=== PATIENT | female | born 1950 | race Caucasian/White ===

== ENCOUNTER 2016-10-19 13:24 | Inpatient (IN) | payer MEDICARE ==
[~2016-10-19] VITALS: Ht 167.6 cm; Wt 55.8 kg
[~2016-10-19 13:24] MED LIST: ALPR0.254 PO; CALC1CAP8 PO; CHOL400C11 PO; DEXA4TAB PO; FENT-58 TD; FLUO15CR7 TD; HYDR-3138 PO; MAGN400T36 PO; MEGE625O3 PO; OMEP20TA2 PO; ONDA8TAB12 PO; POTA20TA91 PO; PROC10TA PO; [UNRECOGNIZED DRUG - CODE] IVPush
[2016-10-19] MEDS ORDERED: ALBUTEROL/IPRATROPIUM 2.5MG/0.5MG, 3 ML ONE (14:57)
[2016-10-19] MEDS ORDERED: OMNIPAQUE 350 MG/ML, 100ML BOTTLE ONE (16:45)
[2016-10-19] MEDS ORDERED: SODIUM CHLORIDE FLUSH 10ML SYR IVF PRN (18:30)
[2016-10-19] MEDS ORDERED: LEVOFLOXACIN/PMX 750MG/150ML 150 ML ONE (18:43)
[2016-10-19] MEDS ORDERED: LORazepam 2 MG/ML, 1ML ONE (18:43)
[2016-10-19] MEDS ORDERED: ONDANSETRON ODT 4 MG PO PRN (20:30)
[2016-10-19] MEDS ORDERED: POLYETHYLENE GLYCOL 17 GM PACKET PO PRN (20:30)
[2016-10-19] MEDS ORDERED: GUAIFENESIN/DM 200-20MG, 10ML UDC PO PRN (20:30)
[2016-10-19] MEDS ORDERED: [UNRECOGNIZED DRUG - REMARK] MC SCH (21:30)
[2016-10-19] MEDS ORDERED: PLEASE ENTER HEIGHT AND WEIGHT MC SCH ×2 (21:30)
[2016-10-19 22:35] VITALS: BP 115/84
[2016-10-19] MEDS: HYDROcodone/APAP 5/325 TABLET PO SCH ×2 (23:00→23:07)
[2016-10-19] MEDS: methylPREDNISolone SOD SUCC 40 MG/ML IVPush SCH (23:06)
[2016-10-19] MEDS: ONDANSETRON ODT 8 MG PO SCH (23:07)
[2016-10-19] MEDS: ENOXAPARIN 40 MG/0.4 ML SQ SCH (23:07)
[2016-10-19] MEDS: PROCHLORPERAZINE 10MG TABLET PO SCH (23:07)
[2016-10-19] MEDS: LORazepam 1MG TABLET PO PRN (23:16)
[2016-10-20 01:22] VITALS: BP 119/79
[2016-10-20] MEDS ORDERED: FUROSEMIDE 40 MG/4 ML IV ONE (02:00)
[2016-10-20] MEDS: methylPREDNISolone SOD SUCC 40 MG/ML IVPush SCH ×4 (04:22→23:38)
[2016-10-20 05:11] LABS: BLOOD UREA NITROGEN 15 mg/dL (7-18)
[2016-10-20] MEDS: HYDROcodone/APAP 5/325 TABLET PO SCH ×4 (05:26→20:17)
[2016-10-20 06:40] VITALS: BP 106/73
[2016-10-20] MEDS: PROCHLORPERAZINE 10MG TABLET PO SCH ×3 (09:00→20:18)
[2016-10-20] MEDS ORDERED: MAGNESIUM SULFATE PMX 2GM/50ML 50 ML IV ONE (09:00)
[2016-10-20] MEDS: FLUOCINOLONE ACETONIDE TD SCH (09:00)
[2016-10-20] MEDS: OMEPRAZOLE 20 MG CAPSULE.DR PO SCH (09:00)
[2016-10-20] MEDS: ONDANSETRON ODT 8 MG PO SCH ×2 (09:00→20:20)
[2016-10-20] MEDS: POTASSIUM CHLORIDE 20 MEQ TAB.ER.PRT PO SCH (09:00)
[2016-10-20] MEDS: SENNA/DOCUSATE TABLET PO SCH (09:03)
[2016-10-20] MEDS: MAGNESIUM OXIDE 400 MG TABLET PO SCH (09:03)
[2016-10-20] MEDS: LORazepam 1MG TABLET PO PRN ×3 (09:04→20:16)
[2016-10-20] MEDS ORDERED: PHARMACOKINETIC MONITORING MC PRN (11:30)
[2016-10-20] MEDS ORDERED: VANCOMYCIN PER PHARMACY MC PRN (11:30)
[2016-10-20] MEDS ORDERED: VANCOMYCIN PMX 1GM/200ML 200 ML IV SCH (12:00)
[2016-10-20] MEDS: GUAIFENESIN 200 MG TABLET PO SCH ×3 (12:00→20:20)
[2016-10-20] MEDS: MEROPENEM 500 MG in SODIUM CHLORIDE 0.9% 100 ML IV SCH ×2 (13:00→20:20)
[2016-10-20 13:17] VITALS: BP 110/77
[2016-10-20] MEDS ORDERED: FENTANYL 50 MCG PATCH TD SCH (14:00)
[2016-10-20] MEDS ORDERED: LIDOCAINE 1%, 20ML ONE (16:58)
[2016-10-20] MEDS ORDERED: SODIUM BICARBONATE 4.2%, 5ML ONE (16:58)
[2016-10-20 18:38] VITALS: BP 135/84
[2016-10-20] MEDS ORDERED: LEVOFLOXACIN/PMX 750MG/150ML 150 ML IV SCH (20:00)
[2016-10-20] MEDS: ENOXAPARIN 40 MG/0.4 ML SQ SCH (20:18)
[2016-10-21] MEDS: LORazepam 1MG TABLET PO PRN ×6 (00:19→22:31)
[2016-10-21] MEDS: HYDROcodone/APAP 5/325 TABLET PO PRN ×4 (00:19→22:31)
[2016-10-21 01:49] VITALS: BP 144/95
[2016-10-21] MEDS: MEROPENEM 500 MG in SODIUM CHLORIDE 0.9% 100 ML IV SCH ×3 (04:30→21:10)
[2016-10-21] MEDS: methylPREDNISolone SOD SUCC 40 MG/ML IVPush SCH ×4 (04:36→21:10)
[2016-10-21] MEDS: GUAIFENESIN 200 MG TABLET PO SCH ×4 (05:10→21:10)
[2016-10-21] MEDS: HYDROcodone/APAP 5/325 TABLET PO SCH ×4 (05:11→18:26)
[2016-10-21 06:17] LABS: BLOOD UREA NITROGEN 21 mg/dL (7-18)
[2016-10-21] MEDS: VANCOMYCIN PMX 1GM/200ML 200 ML IV SCH (07:48)
[2016-10-21] MEDS: FLUOCINOLONE ACETONIDE TD SCH (09:00)
[2016-10-21 09:11] VITALS: BP 129/84
[2016-10-21] MEDS: MAGNESIUM OXIDE 400 MG TABLET PO SCH (09:27)
[2016-10-21] MEDS: PROCHLORPERAZINE 10MG TABLET PO SCH ×3 (09:27→21:10)
[2016-10-21] MEDS: POTASSIUM CHLORIDE 20 MEQ TAB.ER.PRT PO SCH (09:27)
[2016-10-21] MEDS: SENNA/DOCUSATE TABLET PO SCH (09:28)
[2016-10-21] MEDS: OMEPRAZOLE 20 MG CAPSULE.DR PO SCH (09:28)
[2016-10-21] MEDS: ONDANSETRON ODT 8 MG PO SCH ×2 (09:28→21:11)
[2016-10-21] MEDS ORDERED: SODIUM CHLORIDE 0.9% 1,000 ML IV SCH (10:00)
[2016-10-21 10:08] LABS: BLOOD UREA NITROGEN 18 mg/dL (7-18); IS PT STATUS REG ER OR PRE ER? NO
[2016-10-21] MEDS: SODIUM CHLORIDE 0.9% 1,000 ML IV SCH ×2 (11:32→18:26)
[2016-10-21 13:47] VITALS: BP 138/84
[2016-10-21] MEDS ORDERED: ONDANSETRON 2MG/ML, 2ML IVPush PRN (16:00)
[2016-10-21 18:39] VITALS: BP 142/91
[2016-10-21] MEDS: ENOXAPARIN 40 MG/0.4 ML SQ SCH (21:10)
[2016-10-22 00:46] VITALS: BP 130/84
[2016-10-22] MEDS: VANCOMYCIN PMX 1GM/200ML 200 ML IV SCH ×2 (02:17→20:42)
[2016-10-22] MEDS: HYDROcodone/APAP 5/325 TABLET PO PRN ×6 (02:29→20:41)
[2016-10-22] MEDS: LORazepam 1MG TABLET PO PRN ×5 (02:29→20:41)
[2016-10-22 04:38] LABS: BLOOD UREA NITROGEN 22 mg/dL (7-18)
[2016-10-22] MEDS: MEROPENEM 500 MG in SODIUM CHLORIDE 0.9% 100 ML IV SCH ×3 (05:19→21:59)
[2016-10-22] MEDS: HYDROcodone/APAP 5/325 TABLET PO SCH ×3 (06:00→13:31)
[2016-10-22] MEDS: GUAIFENESIN 200 MG TABLET PO SCH ×4 (06:45→20:42)
[2016-10-22] MEDS: ALBUTEROL SULFATE 2.5 MG/3 ML NPPB PRN ×2 (07:04→10:25)
[2016-10-22] MEDS: methylPREDNISolone SOD SUCC 40 MG/ML IVPush SCH ×3 (07:49→20:42)
[2016-10-22] MEDS: ONDANSETRON ODT 8 MG PO SCH ×2 (07:50→20:41)
[2016-10-22] MEDS: PROCHLORPERAZINE 10MG TABLET PO SCH ×3 (07:50→20:41)
[2016-10-22] MEDS: POTASSIUM CHLORIDE 20 MEQ TAB.ER.PRT PO SCH (07:50)
[2016-10-22] MEDS: SENNA/DOCUSATE TABLET PO SCH (07:50)
[2016-10-22] MEDS: OMEPRAZOLE 20 MG CAPSULE.DR PO SCH (07:50)
[2016-10-22] MEDS: FLUOCINOLONE ACETONIDE TD SCH (07:50)
[2016-10-22] MEDS: MAGNESIUM OXIDE 400 MG TABLET PO SCH (07:50)
[2016-10-22 08:05] VITALS: BP 132/84
[2016-10-22] MEDS ORDERED: FENTANYL 50 MCG PATCH TD SCH (09:00)
[2016-10-22 13:20] VITALS: BP 129/95
[2016-10-22] MEDS: ALBUTEROL SULFATE 2.5 MG/3 ML NPPB SCH ×2 (14:08→19:01)
[2016-10-22] MEDS ORDERED: ALBUTEROL SULFATE 2.5 MG/3 ML NPPB SCH (15:00)
[2016-10-22 18:51] VITALS: BP 114/80
[2016-10-22] MEDS: ENOXAPARIN 40 MG/0.4 ML SQ SCH (20:42)
[2016-10-23 02:29] VITALS: BP 123/80
[2016-10-23] MEDS: LORazepam 1MG TABLET PO PRN (03:10)
[2016-10-23] MEDS: HYDROcodone/APAP 5/325 TABLET PO PRN ×2 (03:10→09:26)
[2016-10-23] MEDS: GUAIFENESIN 200 MG TABLET PO SCH ×2 (05:18→11:22)
[2016-10-23] MEDS: MEROPENEM 500 MG in SODIUM CHLORIDE 0.9% 100 ML IV SCH (05:18)
[2016-10-23 07:25] VITALS: BP 125/85
[2016-10-23] MEDS: ALBUTEROL SULFATE 2.5 MG/3 ML NPPB SCH ×2 (08:15→12:10)
[2016-10-23] MEDS: FLUOCINOLONE ACETONIDE TD SCH (09:00)
[2016-10-23] MEDS: PROCHLORPERAZINE 10MG TABLET PO SCH (09:07)
[2016-10-23] MEDS: methylPREDNISolone SOD SUCC 40 MG/ML IVPush SCH (09:07)
[2016-10-23] MEDS: OMEPRAZOLE 20 MG CAPSULE.DR PO SCH (09:08)
[2016-10-23] MEDS: SENNA/DOCUSATE TABLET PO SCH (09:08)
[2016-10-23] MEDS: POTASSIUM CHLORIDE 20 MEQ TAB.ER.PRT PO SCH (09:08)
[2016-10-23] MEDS: MAGNESIUM OXIDE 400 MG TABLET PO SCH (09:08)
[2016-10-23] MEDS: ONDANSETRON ODT 8 MG PO SCH (09:08)
[2016-10-23 12:25] VITALS: BP 129/97
[2016-10-23] MEDS ORDERED: MORPHINE SULFATE 4 MG/ML, 1ML ONE (12:52)
[2016-10-23] MEDS ORDERED: morphine SULFATE 125 MG in SODIUM CHLORIDE 0.9% 237.5 ML IV PRN (12:58)
[2016-10-23] MEDS ORDERED: PROCHLORPERAZINE 5 MG/ML, 2ML IVPush PRN (13:00)
[2016-10-23] MEDS ORDERED: MAGNESIUM SULFATE 1 GM/2 ML IVPush ONE (13:00)
[2016-10-23] MEDS ORDERED: MORPHINE SULFATE 4 MG/ML, 1ML IVPush ONE (13:00)
[2016-10-23] MEDS ORDERED: MAGNESIUM SULFATE PMX 2GM/50ML 50 ML IVPB ONE (13:00)
[2016-10-23] MEDS ORDERED: MORPHINE SULFATE 4 MG/ML, 1ML IVPush PRN ×2 (13:00)
[2016-10-23] MEDS ORDERED: ATROPINE OPHTH SOLN 1%, 5ML BC PRN (13:00)
[2016-10-23] MEDS: LORazepam 2 MG/ML, 1ML IVPush PRN ×2 (17:45→19:59)
[2016-10-23] MEDS: SODIUM CHLORIDE FLUSH 10ML SYR IVF SCH (20:00)
[2016-10-23] MEDS ORDERED: methylPREDNISolone SOD SUCC 40 MG/ML IV SCH (21:00)
[2016-10-24] MEDS: SODIUM CHLORIDE FLUSH 10ML SYR IVF SCH (07:49)
[2016-10-24] MEDS ORDERED: ALBUTEROL SULFATE 2.5 MG/3 ML NPPB PRN (15:00)
== END 2016-10-24 08:50 | disposition expired | DRG 871 ==
LOC: ED 13:24 → 3NW 20:22
PROVIDERS: ADMIT Internal Medicine; ATTEND Internal Medicine
PROC: 0W993ZZ Drainage of Right Pleural Cavity, Percutaneous Approach (ICD-10-PCS; principal; 2016-10-20)
DX: A41.9 Sepsis, unspecified organism (principal); J96.22 Acute and chronic respiratory failure with hypercapnia; J86.9 Pyothorax without fistula; J15.9 Unspecified bacterial pneumonia; J96.21 Acute and chronic respiratory failure with hypoxia; R64 Cachexia; C78.01 Secondary malignant neoplasm of right lung; C78.02 Secondary malignant neoplasm of left lung; C78.1 Secondary malignant neoplasm of mediastinum; E87.2 Acidosis; J47.0 Bronchiectasis with acute lower respiratory infection; J70.0 Acute pulmonary manifestations due to radiation; J90 Pleural effusion, not elsewhere classified; J98.11 Atelectasis; D64.9 Anemia, unspecified; D75.89 Other specified diseases of blood and blood-forming organs; E83.42 Hypomagnesemia; F41.9 Anxiety disorder, unspecified; Z51.5 Encounter for palliative care; I27.2 Other secondary pulmonary hypertension; I10 Essential (primary) hypertension; K21.9 Gastro-esophageal reflux disease without esophagitis; G62.9 Polyneuropathy, unspecified; K59.09 Other constipation; Y84.2 Radiological procedure and radiotherapy as the cause of abnormal reaction of the patient, or of later complication, without mention of misadventure at the time of the procedure; Z85.118 Personal history of other malignant neoplasm of bronchus and lung; Z87.891 Personal history of nicotine dependence; Z99.81 Dependence on supplemental oxygen; Z88.2 Allergy status to sulfonamides; Z88.1 Allergy status to other antibiotic agents; Z66 Do not resuscitate
CPT/HCPCS: 32555; 36415; 71010; 71275; 80048; 80202; 82040; 83735; 83880; 84100; 84145; 84484; 85025; 87040; 93005; 93306; 93970; 94640; 99285; J1650; J1940; J2185; J2405; J3370; J3490; J7613; Q0162; Q0164; Q9967; J2060; J2270; J2920; J3475; J7030; J7050